=== PATIENT | female | born 1990 | race Two or more races ===

== ENCOUNTER 2021-08-08 15:50 | Emergency (ER) | payer OTHER ==
[~2021-08-08] VITALS: Ht 152.4 cm; Wt 72.6 kg
[2021-08-08] MEDS ORDERED: ALBU6.7H9 INH (16:40)
[2021-08-08] MEDS ORDERED: BENZ-13 PO (16:40)
--- NOTE | 2021-08-08 17:23 | NUR ---
Patient discharged to home in stable condition. Written and verbal after care instructions given. Patient verbalizes understanding of instructions. Stressed follow up or return to ER for worsening s/s.
--- NOTE | 2021-08-08 18:06 | NUR ---
The patient is informed that she is Covid positive. Precautions given.
== END 2021-08-08 17:24 | disposition home or self-care (01) ==
LOC: ER 16:04
DX: U07.1 COVID-19 (principal); J40 Bronchitis, not specified as acute or chronic
CPT/HCPCS: 87400; A4663

== ENCOUNTER 2022-05-28 18:00 | Inpatient (IN) | payer OTHER ==
[~2022-05-28] VITALS: Ht 157.5 cm; Wt 72.1 kg
[~2022-05-28 18:00] MED LIST: ALBU6.7H9 INH; BENZ-13 PO
--- NOTE | 2022-05-28 18:23 | NUR ---
Urine collected and sent to LAB.
[2022-05-28] MEDS ORDERED: ONDANSETRON 4 MG/2 ML VIAL ONE (18:43)
[2022-05-28] MEDS ORDERED: HYDROMORPHONE 1 MG/1 ML DISP.SYRIN ONE ×2 (18:44→20:44)
[2022-05-28] MEDS ORDERED: ONDANSETRON 4 MG/2 ML VIAL IV ONE ×2 (18:45→21:45)
[2022-05-28] MEDS ORDERED: HYDROMORPHONE 1 MG/1 ML DISP.SYRIN IV ONE ×2 (18:45→20:45)
[2022-05-28] MEDS ORDERED: KETOROLAC TROMETHAMINE 30 MG INJ IVP ONE (18:45)
[2022-05-28 18:49] LABS: *BILIRUBIN,URIN NEGATIVE (NEGATIVE); *CLARITY,URINE CLEAR (CLEAR); *COLOR,URINE YELLOW (YELLOW); *KETONES,URINE NEGATIVE (NEGATIVE); *UROBILINOGEN,URINE 0.2 E.U./dl (NORMAL); LEUKOCYTE ESTERASE ,URINE 3+ (NEGATIVE); NITRITE, URINE NEGATIVE (NEGATIVE); UGLUCOSE NEGATIVE (NEGATIVE)
[2022-05-28 18:52] LABS: *BLOOD, URINE TRACE (NEGATIVE); *URINE HCG, QUAL NEGATIVE (NEGATIVE)
[2022-05-28 18:53] LABS: BACTERIA,URINE FEW /HPF (NONE SEEN); RBC,URINE 0-3 /HPF (0-3); SQUAMOUS EPITHELIAL CELL,UR MODERATE /HPF (NONE SEEN)
[2022-05-28] MEDS ORDERED: KETOROLAC TROMETHAMINE 30 MG INJ ONE (19:03)
[2022-05-28 19:17] LABS: HEMATOCRIT 40.8 % (31.2-41.9); MEAN CORPUSCULAR HEMOGLOBIN 31.8 uug (24.7-32.8); PLATELET COUNT (AUTO) 258 K/uL (179-408)
[2022-05-28 19:18] LABS: CARBON DIOXIDE 26 mmol/L (21-32); CHLORIDE 105 mmol/L (98-107); CREATININE 0.9 mg/dL (0.6-1.3); GLUCOSE 88 mg/dL (74-106); POTASSIUM 3.8 mmol/L (3.5-5.1); UREA NITROGEN, BLOOD 17 mg/dL (7-18)
[2022-05-28 19:24] LABS: ALANINE AMINOTRANSFERASE 31 U/L (14-59); ALKALINE PHOSPHATASE 70 U/L (50-136); ASPARTATE AMINOTRANSFERASE 14 U/L (15-37); BILIRUBIN,DIRECT < 0.1 mg/dL (0.0-0.2); BILIRUBIN,TOTAL 0.4 mg/dL (0.2-1.0); LIPASE 48 U/L (73-393); TOTAL PROTEIN, SERUM 8.2 g/dL (6.4-8.2)
--- NOTE | 2022-05-28 19:30 | NUR ---
Received report from Bryce PEREZ.
--- NOTE | 2022-05-28 19:34 | NUR ---
US at bedside.
--- NOTE | 2022-05-28 20:42 | NUR ---
Called [facility] for panel call. HA Crawford forensic economist.
[2022-05-28] MEDS ORDERED: PIPERACILLIN/TAZOBACTAM/D5W 50 ML IV ONE (20:44)
[2022-05-28] MEDS ORDERED: PIPERACILLIN SODIUM/TAZOBACTAM 3.375 G in IV DEXTROSE 5% 50 ML IV ONE (20:45)
[2022-05-28] MEDS ORDERED: HYDROMORPHONE 1 MG/1 ML DISP.SYRIN IV PRN (21:00)
[2022-05-28] MEDS ORDERED: MAGNESIUM HYDROXIDE 30 ML LIQUID UDC PO PRN (21:00)
[2022-05-28] MEDS ORDERED: IV D5/ 0.9% NACL 1,000 ML IV PRN (21:00)
[2022-05-28] MEDS ORDERED: REMEDY ESSENTIAL ZINC PASTE 113 GM TP PRN (21:00)
[2022-05-28] MEDS ORDERED: MORPHINE SULFATE 2 MG/1 ML DISP.SYRIN IV PRN (21:00)
[2022-05-28] MEDS ORDERED: ACETAMINOPHEN 325 MG TABLET PO PRN (21:00)
--- NOTE | 2022-05-28 22:50 | NUR ---
Call for MED SURG bed (rm 317). Report given to Shireen PEREZ
[2022-05-29] VITALS: BP 110/71
--- NOTE | 2022-05-29 00:10 | NUR ---
Pt. admitted to Med Surg rm 317, under care of HA [place]. [place] [place] completed Shireen PEREZ aware of patient's arrival to unit.
--- NOTE | 2022-05-29 01:00 | NUR ---
RECEIVED REPORT FROM [facility] IN THE ER PATIENT WOKE WITH ABD PAIN. PT STATES'i HAD THIS PAIN OFF ON ABOUT THREE BUT IT WOULD GO AWAY BUT NOW IT STAYS'.PT HAS RIGHT HAND IV 20G PT IS NPO PT HAD A HIDA SCAN OF THE ABD DONE. PT WAS GIVEN MEDICATION ORDERED NO SIGNS OF RESPIRATORY DISTRESS NOTED. PT IS NPO INFORMED CAN'T HAVE ICE CHIPS. WILL CONTINUE TO MONITOR.
[2022-05-29] MEDS: PANTOPRAZOLE SODIUM 40 MG VIAL IV SCH ×2 (02:27→08:22)
[2022-05-29] MEDS: ONDANSETRON 4 MG/2 ML VIAL IV PRN ×3 (02:28→14:52)
[2022-05-29 04:00] VITALS: BP 109/75
[2022-05-29] MEDS ORDERED: PIPERACILLIN SODIUM/TAZOBACTAM 3.375 G in IV DEXTROSE 5% 50 ML IV ONE (05:00)
[2022-05-29] MEDS ORDERED: HYDROMORPHONE 1 MG/1 ML DISP.SYRIN IV PRN ×2 (05:00→06:15)
[2022-05-29] MEDS ORDERED: PIPERACILLIN/TAZOBACTAM/D5W 50 ML IV ONE (05:34)
[2022-05-29 07:09] LABS: HEMATOCRIT 36.1 % (31.2-41.9); MEAN CORPUSCULAR HEMOGLOBIN 32.2 uug (24.7-32.8); MEAN CORPUSCULAR VOLUME 91.6 fL (75.5-95.3); PLATELET COUNT (AUTO) 244 K/uL (179-408)
[2022-05-29 07:34] LABS: CREATININE 1.1 mg/dL (0.6-1.3); POTASSIUM 3.8 mmol/L (3.5-5.1)
[2022-05-29 08:40] LABS: MAGNESIUM 2.1 mg/dL (1.8-2.4); PHOSPHOROUS 4.7 mg/dL (2.5-4.9)
[2022-05-29] MEDS: MORPHINE SULFATE 2 MG/1 ML DISP.SYRIN IV PRN ×2 (10:39→17:55)
[2022-05-29 11:08] VITALS: BP 103/61
[2022-05-29] MEDS: PIPERACILLIN SODIUM/TAZOBACTAM 3.375 G in IV DEXTROSE 5% 100 ML IV SCH ×2 (13:16→21:03)
[2022-05-29] MEDS ORDERED: PIPERACILLIN SODIUM/TAZOBACTAM 3.375 G in IV DEXTROSE 5% 50 ML IV SCH (14:00)
[2022-05-29 15:09] VITALS: BP 93/55
[2022-05-29 20:00] VITALS: BP 103/58
[2022-05-30 04:00] VITALS: BP 111/22
[2022-05-30] MEDS: PIPERACILLIN SODIUM/TAZOBACTAM 3.375 G in IV DEXTROSE 5% 100 ML IV SCH ×2 (05:06→14:00)
[2022-05-30] MEDS: MORPHINE SULFATE 2 MG/1 ML DISP.SYRIN IV PRN (05:48)
[2022-05-30 07:31] LABS: HEMATOCRIT 34.9 % (31.2-41.9); MEAN CORPUSCULAR HEMOGLOBIN 32.1 uug (24.7-32.8); MEAN CORPUSCULAR VOLUME 92.4 fL (75.5-95.3); PLATELET COUNT (AUTO) 230 K/uL (179-408)
[2022-05-30 07:45] LABS: POTASSIUM 3.6 mmol/L (3.5-5.1)
[2022-05-30] MEDS: PANTOPRAZOLE SODIUM 40 MG VIAL IV SCH (09:03)
[2022-05-30] MEDS ORDERED: METR500T PO (10:46)
[2022-05-30] MEDS ORDERED: LEVO750T46 PO (10:46)
[2022-05-30] MEDS ORDERED: MESA1.2T PO (10:46)
[2022-05-30] MEDS ORDERED: MESALAMINE 400 MG CAPSULE.DR PO SCH (11:00)
[2022-05-30 11:15] VITALS: BP 92/53
--- NOTE | 2022-05-30 13:00 | NUR ---
ABLE TO TOLERATE LUNCH WELL. PREPARED FOR DISCHARGE.
[2022-05-30 15:14] VITALS: BP 94/64
--- NOTE | 2022-05-30 15:30 | NUR ---
DISCHARGED VIA W/C TO [facility] IN AUTO. NO C/O DISCOMFORT.
== END 2022-05-30 15:30 | disposition home or self-care (01) | DRG 244 ==
LOC: ER 18:00 → MEDSURG3 21:25
PROVIDERS: ADMIT Nurse Practitioner Acute Care; ATTEND Nurse Practitioner Acute Care
DX: K57.20 Diverticulitis of large intestine with perforation and abscess without bleeding (principal); K76.0 Fatty (change of) liver, not elsewhere classified; E66.9 Obesity, unspecified; N39.0 Urinary tract infection, site not specified; Z68.29 Body mass index [BMI] 29.0-29.9, adult; Z20.822 Contact with and (suspected) exposure to COVID-19
CPT/HCPCS: 36415; 78445; 83690; 83735; 84100; 84703; 85025; 87086; A4663; A9537; C9113; G0378; J1170; J1885; J2270; J2405; J2543; J7042

== ENCOUNTER 2022-07-09 18:10 | Emergency (ER) | payer OTHER ==
[~2022-07-09] VITALS: Ht 157.5 cm; Wt 72.6 kg
[~2022-07-09 18:10] MED LIST changes: +LEVO750T46 PO; +MESA1.2T PO; +METR500T PO
[2022-07-09] MEDS ORDERED: ACETAMINOPHEN ES 500 MG TABLET ONE (22:59)
--- NOTE | 2022-07-10 00:42 | NUR ---
PLACED PATIENT IN ROOM 2B.
--- NOTE | 2022-07-10 00:47 | NUR ---
Dr Morales at bedside MSE in progress
[2022-07-10] MEDS ORDERED: HYDROMORPHONE 1 MG/1 ML DISP.SYRIN IV ONE ×3 (01:00→05:30)
[2022-07-10] MEDS ORDERED: ONDANSETRON 4 MG/2 ML VIAL IV ONE (01:00)
[2022-07-10] MEDS ORDERED: IV NORMAL SALINE 1000 ML BAG IV ONE (01:00)
[2022-07-10] MEDS ORDERED: HYDROMORPHONE 1 MG/1 ML DISP.SYRIN ONE ×3 (01:01→05:28)
[2022-07-10] MEDS ORDERED: ONDANSETRON 4 MG/2 ML VIAL ONE (01:01)
[2022-07-10 01:31] LABS: *BILIRUBIN,URIN NEGATIVE (NEGATIVE); *CLARITY,URINE CLEAR (CLEAR); *KETONES,URINE NEGATIVE (NEGATIVE); *UROBILINOGEN,URINE 0.2 E.U./dl (NORMAL); LEUKOCYTE ESTERASE ,URINE TRACE (NEGATIVE); NITRITE, URINE NEGATIVE (NEGATIVE); PH,URINE 5.5 (5.0-8.0); UGLUCOSE NEGATIVE (NEGATIVE)
[2022-07-10 01:32] LABS: BILIRUBIN,DIRECT 0.1 mg/dL (0.0-0.2); BILIRUBIN,TOTAL 0.4 mg/dL (0.2-1.0); CREATININE 0.8 mg/dL (0.6-1.3); HEMATOCRIT 39.7 % (31.2-41.9); MEAN CORPUSCULAR HEMOGLOBIN 32.1 uug (24.7-32.8); MEAN CORPUSCULAR VOLUME 91.9 fL (75.5-95.3); PLATELET COUNT (AUTO) 331 K/uL (179-408); POTASSIUM 3.3 mmol/L (3.5-5.1); TOTAL PROTEIN, SERUM 7.8 g/dL (6.4-8.2)
[2022-07-10 01:37] LABS: *BLOOD, URINE TRACE (NEGATIVE); *COLOR,URINE HAZY (YELLOW)
[2022-07-10 01:38] LABS: *URINE HCG, QUAL NEGATIVE (NEGATIVE); BACTERIA,URINE FEW /HPF (NONE SEEN); SQUAMOUS EPITHELIAL CELL,UR FEW /HPF (NONE SEEN)
[2022-07-10] MEDS ORDERED: SWABABLE VALVE TRANSFER SET EA MC ONE (01:51)
[2022-07-10] MEDS ORDERED: IV NORMAL SALINE 250 ML IV ONE (01:51)
[2022-07-10] MEDS ORDERED: IOHEXOL 350 100 ML INFUS..BTL ONE (01:51)
[2022-07-10] MEDS ORDERED: IV D5W-0.45% NS +20 KCL 1,000 ML IV ONE ×2 (02:00→02:13)
[2022-07-10] MEDS ORDERED: PIPERACILLIN SODIUM/TAZOBACTAM 3.375 G in IV DEXTROSE 5% 50 ML IV ONE (04:15)
[2022-07-10] MEDS ORDERED: PIPERACILLIN/TAZOBACTAM/D5W 50 ML IV ONE (04:18)
--- NOTE | 2022-07-10 06:00 | NUR ---
[facility] transfer center called for transfer information. Pt. will be transferred to [facility] [id number] called for report .
--- NOTE | 2022-07-10 06:20 | NUR ---
Called [facility] to give report, was told no nurse assigned for the pt. at the moment. Will call us once ready for report.
--- NOTE | 2022-07-10 06:45 | NUR ---
Gave SBAR report to Lucy amaro from [facility] [place] .
--- NOTE | 2022-07-10 06:48 | NUR ---
called [facility] ambulance for transport spoke with randi ALVAREZ 30-45 mins.
--- NOTE | 2022-07-10 08:14 | NUR ---
Previous nurse Breann Haddad gave report to ambulance EMT staff. Patient left ER in stable condition.
== END 2022-07-10 08:14 | disposition short-term general hospital (02) ==
LOC: ER 18:10
DX: K57.32 Diverticulitis of large intestine without perforation or abscess without bleeding (principal); K52.9 Noninfective gastroenteritis and colitis, unspecified
CPT/HCPCS: 99285; 74177; 96374; 96375; 96361; 87426; 80076; 80048; 81001; 84703; 83690; 85025; 36415; 96376; J2405; Q9967; J2543; J1170 ×3; J7040; A9150

== ENCOUNTER 2022-09-03 18:35 | Emergency (ER) | payer OTHER ==
[~2022-09-03] VITALS: Ht 157.5 cm; Wt 68.0 kg
[2022-09-03] MEDS ORDERED: IV NORMAL SALINE 1000 ML BAG IV ONE (20:00)
[2022-09-03 20:14] LABS: HEMATOCRIT 40.7 % (31.2-41.9); MEAN CORPUSCULAR HEMOGLOBIN 30.9 uug (24.7-32.8); MEAN CORPUSCULAR VOLUME 92.4 fL (75.5-95.3); PLATELET COUNT (AUTO) 271 K/uL (179-408)
[2022-09-03 20:23] LABS: CREATININE 0.8 mg/dL (0.6-1.3); POTASSIUM 3.9 mmol/L (3.5-5.1)
[2022-09-03 20:34] LABS: BILIRUBIN,DIRECT 0.1 mg/dL (0.0-0.2); BILIRUBIN,TOTAL 0.4 mg/dL (0.2-1.0); TOTAL PROTEIN, SERUM 8.2 g/dL (6.4-8.2)
[2022-09-03 20:46] LABS: *BILIRUBIN,URIN NEGATIVE (NEGATIVE); *COLOR,URINE YELLOW (YELLOW); *KETONES,URINE NEGATIVE (NEGATIVE); *UROBILINOGEN,URINE 0.2 E.U./dl (NORMAL); LEUKOCYTE ESTERASE ,URINE 1+ (NEGATIVE); NITRITE, URINE NEGATIVE (NEGATIVE); PH,URINE 6.5 (5.0-8.0); UGLUCOSE NEGATIVE (NEGATIVE)
[2022-09-03 20:50] LABS: *BLOOD, URINE TRACE (NEGATIVE); *CLARITY,URINE HAZY (CLEAR)
[2022-09-03 20:51] LABS: *URINE HCG, QUAL NEGATIVE (NEGATIVE); BACTERIA,URINE FEW /HPF (NONE SEEN); SQUAMOUS EPITHELIAL CELL,UR FEW /HPF (NONE SEEN)
[2022-09-03] MEDS ORDERED: ONDANSETRON 4 MG/2 ML VIAL IV ONE (21:15)
[2022-09-03] MEDS ORDERED: HYDROMORPHONE 1 MG/1 ML DISP.SYRIN IV ONE ×2 (21:15→22:45)
[2022-09-03] MEDS ORDERED: IOHEXOL 300MG/ML 100 ML INFUS..BTL ONE (21:16)
[2022-09-03] MEDS ORDERED: IV NORMAL SALINE 250 ML IV ONE (21:17)
[2022-09-03] MEDS ORDERED: SWABABLE VALVE TRANSFER SET EA MC ONE (21:17)
--- NOTE | 2022-09-03 22:00 | NUR ---
Patient in room laying on gurny with no distress noted
[2022-09-03] MEDS ORDERED: AMOX-430 PO (22:24)
[2022-09-03] MEDS ORDERED: HYDR-4209 PO (22:26)
[2022-09-03] MEDS ORDERED: PIPERACILLIN SODIUM/TAZOBACTAM 3.375 G in IV DEXTROSE 5% 50 ML IV ONE (22:30)
--- NOTE | 2022-09-03 22:30 | NUR ---
Dr Morales into re eval patient.
[2022-09-03] MEDS ORDERED: HYDROMORPHONE 1 MG/1 ML DISP.SYRIN ONE (22:41)
[2022-09-03] MEDS ORDERED: ONDANSETRON 4 MG/2 ML VIAL ONE (22:41)
[2022-09-03] MEDS ORDERED: PIPERACILLIN/TAZOBACTAM/D5W 50 ML IV ONE (22:41)
--- NOTE | 2022-09-03 22:53 | NUR ---
pt in room, gave all due meds as ordered at this time.
[2022-09-04 00:39] VITALS: BP 122/80
== END 2022-09-04 00:40 | disposition home or self-care (01) ==
LOC: ER 19:02
DX: U07.1 COVID-19 (principal); J02.9 Acute pharyngitis, unspecified; K57.92 Diverticulitis of intestine, part unspecified, without perforation or abscess without bleeding; R10.9 Unspecified abdominal pain
CPT/HCPCS: 36415; 71045; 83690; 84703; 85025; A4663; J1170; J2405; J2543; J7040; Q9967

== ENCOUNTER 2023-03-31 13:02 | Emergency (ER) | payer OTHER ==
[~2023-03-31] VITALS: Ht 157.5 cm; Wt 65.8 kg
[~2023-03-31 13:02] MED LIST changes: +AMOX-430 PO; +HYDR-4209 PO
[2023-03-31] MEDS ORDERED: IV NORMAL SALINE 1000 ML BAG IV ONE ×2 (13:30→13:45)
[2023-03-31 13:36] LABS: BASOPHILS % (AUTO) 0.6 % (0.0-2.0); EOSINOPHILS % (AUTO) 0.5 % (0.0-7.0); HEMATOCRIT 41.4 % (31.2-41.9); HEMOGLOBIN 13.9 g/dL (10.9-14.3); LYMPHOCYTES # (AUTO) 1.7 K/uL (0.8-4.8); LYMPHOCYTES % (AUTO) 22.6 % (20.5-51.5); MEAN CORPUSCULAR HEMOGLOBIN 31.7 uug (24.7-32.8); MEAN CORPUSCULAR HGB CONC 34 g/dL (32.3-35.6); MEAN CORPUSCULAR VOLUME 94.4 fL (75.5-95.3); MONOCYTES # (AUTO) 0.7 K/uL (0.1-1.30); MONOCYTES % (AUTO) 8.8 % (0.0-11.0); NEUTROPHILS # (AUTO) 5.2 K/uL (1.8-8.9); NEUTROPHILS % (AUTO) 67.5 % (38.5-71.5); PLATELET COUNT (AUTO) 314 K/uL (179-408); RED BLOOD CELL COUNT(AUTO) 4.38 MIL/uL (3.63-4.92); RED CELL DISTRIBUTION WIDTH 13.5 % (12.3-17.7); WHITE BLOOD COUNT (AUTO) 7.7 K/uL (3.8-11.8)
[2023-03-31 13:41] LABS: *BILIRUBIN,URIN NEGATIVE (NEGATIVE); *BLOOD, URINE 3+ (NEGATIVE); *CLARITY,URINE CLEAR (CLEAR); *COLOR,URINE YELLOW (YELLOW); *KETONES,URINE NEGATIVE (NEGATIVE); *PROTEIN,URINE 1+ (NEGATIVE); *UROBILINOGEN,URINE 0.2 E.U./dl (NORMAL); LEUKOCYTE ESTERASE ,URINE 2+ (NEGATIVE); NITRITE, URINE POSITIVE (NEGATIVE); UGLUCOSE NEGATIVE (NEGATIVE)
[2023-03-31 13:44] LABS: DIFFERENTIAL COMMENT 1
[2023-03-31] MEDS ORDERED: CEFTRIAXONE 1 G in IV DEXTROSE 5% 50 ML IV ONE (13:45)
[2023-03-31] MEDS ORDERED: ACETAMINOPHEN 325 MG TABLET PO ONE (13:45)
[2023-03-31] MEDS ORDERED: CEFTRIAXONE /D5W 50ML IVPB **ER PYXIS IV ONE (14:04)
[2023-03-31] MEDS ORDERED: ACETAMINOPHEN 325 MG TABLET ONE (14:05)
[2023-03-31] MEDS ORDERED: ONDANSETRON 4 MG/2 ML VIAL ONE (14:10)
[2023-03-31] MEDS ORDERED: ONDANSETRON 4 MG/2 ML VIAL IV ONE (14:15)
[2023-03-31 14:35] LABS: PREGNANCY TEST SERUM QUAN < 1 miul/L (0-6)
[2023-03-31 15:00] LABS: CALCIUM 8.6 mg/dL (8.5-10.1); CARBON DIOXIDE 27 mmol/L (21-32); CHLORIDE 103 mmol/L (98-107); GLUCOSE 116 mg/dL (74-106); POTASSIUM 3.8 mmol/L (3.5-5.1); SODIUM SERUM 139 mmol/L (136-145)
[2023-03-31 15:01] LABS: ALANINE AMINOTRANSFERASE 31 U/L (14-59); ALKALINE PHOSPHATASE 87 U/L (50-136); ASPARTATE AMINOTRANSFERASE 21 U/L (15-37); BILIRUBIN,DIRECT 0.1 mg/dL (0.0-0.2); UREA NITROGEN, BLOOD 16 mg/dL (7-18)
[2023-03-31 15:02] LABS: ALBUMIN 3.9 g/dL (3.4-5.0); TOTAL PROTEIN, SERUM 7.9 g/dL (6.4-8.2)
[2023-03-31 15:23] LABS: BILIRUBIN,TOTAL 0.4 mg/dL (0.2-1.0)
[2023-03-31] MEDS ORDERED: IBUP-1955 PO (15:35)
[2023-03-31] MEDS ORDERED: CEPH500C2 PO (15:35)
[2023-03-31] MEDS ORDERED: ONDA4TAB5 PO (15:35)
[2023-03-31 15:56] VITALS: BP 114/60; O2SAT 99
[2023-03-31 16:39] LABS: BACTERIA,URINE MODERATE /HPF (NONE SEEN)
== END 2023-03-31 15:57 | disposition home or self-care (01) ==
LOC: ER 13:02
DX: N12 Tubulo-interstitial nephritis, not specified as acute or chronic (principal); N39.0 Urinary tract infection, site not specified; N93.9 Abnormal uterine and vaginal bleeding, unspecified; R10.2 Pelvic and perineal pain; Z79.2 Long term (current) use of antibiotics; Z79.899 Other long term (current) drug therapy
CPT/HCPCS: 99285; 74176; 96365; 76856; 96375; 80076; 80048; 81001; 85025; 86850; 86900; 86901; 87040 ×2; 84702; 36415; 93005; 83605; J0696; J2405; J7040 ×2; A4663

== ENCOUNTER 2023-07-09 15:25 | Emergency (ER) | payer OTHER ==
[~2023-07-09] VITALS: Ht 157.5 cm; Wt 65.8 kg
[~2023-07-09 15:25] MED LIST changes: +CEPH500C2 PO; +IBUP-1955 PO; +ONDA4TAB5 PO
[2023-07-09 15:59] LABS: *BILIRUBIN,URIN NEGATIVE (NEGATIVE); *CLARITY,URINE CLEAR (CLEAR); *COLOR,URINE YELLOW (YELLOW); *KETONES,URINE NEGATIVE (NEGATIVE); *PROTEIN,URINE NEGATIVE (NEGATIVE); *UROBILINOGEN,URINE 0.2 E.U./dl (NORMAL); LEUKOCYTE ESTERASE ,URINE NEGATIVE (NEGATIVE); NITRITE, URINE NEGATIVE (NEGATIVE); UGLUCOSE NEGATIVE (NEGATIVE)
[2023-07-09 16:04] LABS: *BLOOD, URINE TRACE (NEGATIVE)
[2023-07-09 16:05] LABS: *URINE HCG, QUAL NEGATIVE (NEGATIVE)
[2023-07-09] MEDS ORDERED: IV NORMAL SALINE 1000 ML BAG IV ONE (17:15)
[2023-07-09] MEDS ORDERED: METOCLOPRAMIDE HCL 10 MG/2 ML VIAL IV ONE (17:15)
[2023-07-09] MEDS ORDERED: KETOROLAC TROMETHAMINE 15 MG INJ IVP ONE (17:15)
[2023-07-09] MEDS ORDERED: METOCLOPRAMIDE HCL 10 MG/2 ML VIAL ONE (17:32)
[2023-07-09] MEDS ORDERED: KETOROLAC TROMETHAMINE 15 MG INJ ONE (17:32)
[2023-07-09 17:41] LABS: BASOPHILS # (AUTO) 0.1 K/UL (0.0-0.2); BASOPHILS % (AUTO) 0.5 % (0.0-2.0); EOSINOPHILS % (AUTO) 0.3 % (0.0-7.0); HEMATOCRIT 41.7 % (31.2-41.9); HEMOGLOBIN 14.1 g/dL (10.9-14.3); LYMPHOCYTES # (AUTO) 2.1 K/uL (0.8-4.8); LYMPHOCYTES % (AUTO) 16.3 % (20.5-51.5); MEAN CORPUSCULAR HEMOGLOBIN 32.4 uug (24.7-32.8); MEAN CORPUSCULAR HGB CONC 34 g/dL (32.3-35.6); MEAN CORPUSCULAR VOLUME 96.2 fL (75.5-95.3); MONOCYTES # (AUTO) 0.8 K/uL (0.1-1.30); MONOCYTES % (AUTO) 6.6 % (0.0-11.0); NEUTROPHILS # (AUTO) 9.8 K/uL (1.8-8.9); NEUTROPHILS % (AUTO) 76.3 % (38.5-71.5); PLATELET COUNT (AUTO) 259 K/uL (179-408); RED BLOOD CELL COUNT(AUTO) 4.34 MIL/uL (3.63-4.92); RED CELL DISTRIBUTION WIDTH 12.8 % (12.3-17.7); WHITE BLOOD COUNT (AUTO) 12.9 K/uL (3.8-11.8)
[2023-07-09 17:55] LABS: DIFFERENTIAL COMMENT 1
[2023-07-09 18:13] LABS: BACTERIA,URINE FEW /HPF (NONE SEEN); RBC,URINE 0-3 /HPF (0-3); WBC,URINE 0-3 /HPF (0-3)
[2023-07-09 18:14] LABS: SQUAMOUS EPITHELIAL CELL,UR FEW /HPF (NONE SEEN)
[2023-07-09 18:26] LABS: CALCIUM 8.4 mg/dL (8.5-10.1); CREATININE 0.6 mg/dL (0.6-1.3); POTASSIUM 3.7 mmol/L (3.5-5.1)
[2023-07-09 18:32] LABS: ALBUMIN 3.2 g/dL (3.4-5.0); BILIRUBIN,DIRECT 0.1 mg/dL (0.0-0.2); BILIRUBIN,TOTAL 0.2 mg/dL (0.2-1.0); TOTAL PROTEIN, SERUM 6.4 g/dL (6.4-8.2)
[2023-07-09] MEDS ORDERED: ONDANSETRON 4 MG/2 ML VIAL IV ONE (19:00)
[2023-07-09] MEDS ORDERED: PIPERACILLIN SODIUM/TAZOBACTAM 3.375 G in IV DEXTROSE 5% 50 ML IV ONE (19:00)
[2023-07-09] MEDS ORDERED: HYDROMORPHONE 1 MG/1 ML DISP.SYRIN IV ONE (19:00)
[2023-07-09] MEDS ORDERED: ONDA4TAB11 PO (19:05)
[2023-07-09] MEDS ORDERED: HYDR-3980 PO (19:05)
[2023-07-09] MEDS ORDERED: AMOX-430 PO (19:05)
[2023-07-09] MEDS ORDERED: ONDANSETRON 4 MG/2 ML VIAL ONE (19:12)
[2023-07-09] MEDS ORDERED: HYDROMORPHONE 1 MG/1 ML DISP.SYRIN ONE (19:12)
[2023-07-09] MEDS ORDERED: PIPERACILLIN/TAZOBACTAM/D5W 0 ML ONE (19:13)
[2023-07-09] MEDS ORDERED: PIPERACILLIN/TAZOBACTAM/D5W 50 ML IV ONE (19:21)
[2023-07-09 20:32] VITALS: BP 121/79; TEMP 98.4; O2SAT 99
== END 2023-07-09 20:32 | disposition home or self-care (01) ==
LOC: ER 15:29
DX: K57.32 Diverticulitis of large intestine without perforation or abscess without bleeding (principal); Z79.1 Long term (current) use of non-steroidal anti-inflammatories (NSAID); Z79.2 Long term (current) use of antibiotics; Z79.899 Other long term (current) drug therapy
CPT/HCPCS: 99285; 74176; 96365; 96375; 96361; 80076; 80048; 81001; 84703; 83690; 85025; 87040 ×2; 36415; 83605; 87086; J1885; J2765; J2405; J2543; J1170; J7040; A4606; A4663

== ENCOUNTER 2024-02-01 19:52 | Emergency (ER) | payer OTHER ==
[~2024-02-01] VITALS: Ht 157.5 cm; Wt 64.4 kg
[~2024-02-01 19:52] MED LIST changes: +HYDR-3980 PO; +ONDA4TAB11 PO
[2024-02-01 22:12] LABS: BASOPHILS % (AUTO) 0.5 % (0.0-2.0); EOSINOPHILS # (AUTO) 0.1 K/uL (0.0-0.7); HEMATOCRIT 41.6 % (31.2-41.9); HEMOGLOBIN 13.8 g/dL (10.9-14.3); LYMPHOCYTES # (AUTO) 2.1 K/uL (0.8-4.8); LYMPHOCYTES % (AUTO) 31.3 % (20.5-51.5); MEAN CORPUSCULAR HEMOGLOBIN 29.8 uug (24.7-32.8); MEAN CORPUSCULAR HGB CONC 33 g/dL (32.3-35.6); MONOCYTES # (AUTO) 0.6 K/uL (0.1-1.30); MONOCYTES % (AUTO) 8.3 % (0.0-11.0); NEUTROPHILS # (AUTO) 3.9 K/uL (1.8-8.9); NEUTROPHILS % (AUTO) 58.9 % (38.5-71.5); PLATELET COUNT (AUTO) 312 K/uL (179-408); RED BLOOD CELL COUNT(AUTO) 4.62 MIL/uL (3.63-4.92); RED CELL DISTRIBUTION WIDTH 12.9 % (12.3-17.7); WHITE BLOOD COUNT (AUTO) 6.7 K/uL (3.8-11.8)
[2024-02-01] MEDS ORDERED: ONDANSETRON 4 MG/2 ML VIAL ONE (22:12)
[2024-02-01] MEDS ORDERED: HYDROMORPHONE 1 MG/1 ML DISP.SYRIN ONE (22:12)
[2024-02-01 22:14] LABS: DIFFERENTIAL COMMENT 1
[2024-02-01] MEDS: HYDROMORPHONE 1 MG/1 ML DISP.SYRIN IV ONE (22:15)
[2024-02-01] MEDS: ONDANSETRON 4 MG/2 ML VIAL IV ONE (22:15)
[2024-02-01] MEDS: IV NORMAL SALINE 1000 ML BAG IV ONE (22:15)
[2024-02-01 22:22] LABS: CALCIUM 9.2 mg/dL (8.5-10.1); CARBON DIOXIDE 27 mmol/L (21-32); CHLORIDE 106 mmol/L (98-107); CREATININE 0.9 mg/dL (0.6-1.3); GLUCOSE 100 mg/dL (74-106); POTASSIUM 3.3 mmol/L (3.5-5.1); SODIUM SERUM 143 mmol/L (136-145); UREA NITROGEN, BLOOD 13 mg/dL (7-18)
[2024-02-01 22:25] LABS: ALANINE AMINOTRANSFERASE 18 U/L (14-59); ALBUMIN 3.9 g/dL (3.4-5.0); ALKALINE PHOSPHATASE 71 U/L (50-136); ASPARTATE AMINOTRANSFERASE 12 U/L (15-37); BILIRUBIN,DIRECT 0.1 mg/dL (0.0-0.2); BILIRUBIN,TOTAL 0.3 mg/dL (0.2-1.0); LIPASE 24 U/L (16-77); TOTAL PROTEIN, SERUM 8.2 g/dL (6.4-8.2)
[2024-02-01] MEDS ORDERED: SWABABLE VALVE TRANSFER SET EA MC ONE (22:32)
[2024-02-01] MEDS ORDERED: IV NORMAL SALINE 250 ML IV ONE (22:32)
[2024-02-01] MEDS ORDERED: IOHEXOL 300MG/ML 100 ML INFUS..BTL ONE (22:32)
[2024-02-01 22:37] LABS: PREGNANCY TEST SERUM QUAN < 1 miul/L (0-6)
[2024-02-02 00:15] VITALS: BP 126/74; TEMP 98; O2SAT 100
== END 2024-02-01 23:45 | disposition home or self-care (01) ==
LOC: ER 19:56
DX: R10.31 Right lower quadrant pain (principal); R10.2 Pelvic and perineal pain; Z98.890 Other specified postprocedural states; Z79.899 Other long term (current) drug therapy
CPT/HCPCS: 99285; 74177; 96374; 76856; 96361; 96375; 80076; 80048; 83690; 85025; 85730; 84702; J2405; Q9967; J1170; J7040; A4606; A4663

== ENCOUNTER 2024-02-23 10:06 | Emergency (ER) | payer OTHER ==
[~2024-02-23] VITALS: Ht 157.5 cm; Wt 63.5 kg
[2024-02-23] MEDS ORDERED: ACETAMINOPHEN 500 MG TABLET ONE (11:01)
[2024-02-23 11:03] LABS: BASOPHILS # (AUTO) 0.1 K/UL (0.0-0.2); BASOPHILS % (AUTO) 1.2 % (0.0-2.0); EOSINOPHILS % (AUTO) 0.7 % (0.0-7.0); HEMATOCRIT 42.2 % (31.2-41.9); HEMOGLOBIN 13.8 g/dL (10.9-14.3); LYMPHOCYTES % (AUTO) 34.3 % (20.5-51.5); MEAN CORPUSCULAR HEMOGLOBIN 29.3 uug (24.7-32.8); MEAN CORPUSCULAR HGB CONC 33 g/dL (32.3-35.6); MEAN CORPUSCULAR VOLUME 89.8 fL (75.5-95.3); MONOCYTES # (AUTO) 0.4 K/uL (0.1-1.30); NEUTROPHILS # (AUTO) 3.3 K/uL (1.8-8.9); NEUTROPHILS % (AUTO) 56.8 % (38.5-71.5); PLATELET COUNT (AUTO) 297 K/uL (179-408); RED CELL DISTRIBUTION WIDTH 13.6 % (12.3-17.7); WHITE BLOOD COUNT (AUTO) 5.7 K/uL (3.8-11.8)
[2024-02-23 11:10] LABS: CALCIUM 8.8 mg/dL (8.5-10.1); CARBON DIOXIDE 25 mmol/L (21-32); CHLORIDE 106 mmol/L (98-107); CREATININE 0.7 mg/dL (0.6-1.3); GLUCOSE 86 mg/dL (74-106); POTASSIUM 3.7 mmol/L (3.5-5.1); SODIUM SERUM 141 mmol/L (136-145); UREA NITROGEN, BLOOD 9 mg/dL (7-18)
[2024-02-23] MEDS: IV NORMAL SALINE 500 ML BAG IV ONE (11:11)
[2024-02-23] MEDS: ACETAMINOPHEN 500 MG TABLET PO ONE (11:11)
[2024-02-23 11:14] LABS: DIFFERENTIAL COMMENT 1
[2024-02-23 11:40] LABS: PREGNANCY TEST SERUM QUAN < 1 miul/L (0-6)
[2024-02-23 13:06] VITALS: BP 129/66; TEMP 98.2; O2SAT 97
== END 2024-02-23 13:23 | disposition home or self-care (01) ==
LOC: ER 10:06
DX: N93.9 Abnormal uterine and vaginal bleeding, unspecified (principal); R10.2 Pelvic and perineal pain; Z79.1 Long term (current) use of non-steroidal anti-inflammatories (NSAID); Z98.890 Other specified postprocedural states; Z79.891 Long term (current) use of opiate analgesic; Z79.899 Other long term (current) drug therapy
CPT/HCPCS: 36415; 76856; 85025; 85730; 86850; 86900; 86901; A4606; A4663; A9150; J7040

== ENCOUNTER 2024-05-16 14:05 | Emergency (ER) | payer OTHER ==
[~2024-05-16] VITALS: Ht 157.5 cm; Wt 64.0 kg
[2024-05-16] MEDS ORDERED: OXYCODONE/APAP 5-325 MG TABLET ONE (16:34)
[2024-05-16] MEDS: OXYCODONE/APAP 5-325 MG TABLET PO ONE (16:39)
[2024-05-16] MEDS ORDERED: HYDR-3972 PO (17:22)
[2024-05-16 17:29] VITALS: BP 105/64; O2SAT 99
== END 2024-05-16 17:30 | disposition home or self-care (01) ==
LOC: ER 14:05
DX: S52.92XA Unspecified fracture of left forearm, initial encounter for closed fracture (principal); Z79.899 Other long term (current) drug therapy; X58.XXXA Exposure to other specified factors, initial encounter; Y93.89 Activity, other specified; Y92.89 Other specified places as the place of occurrence of the external cause; Y99.8 Other external cause status
CPT/HCPCS: 73070; 73090; 73100; A4606; A4663

== ENCOUNTER 2024-08-15 15:50 | Emergency (ER) | payer OTHER ==
[~2024-08-15] VITALS: Ht 160 cm; Wt 65.8 kg
[~2024-08-15 15:50] MED LIST changes: +HYDR-3972 PO
[2024-08-15 17:48] VITALS: O2SAT 98
== END 2024-08-15 22:28 | disposition left against medical advice (07) ==
LOC: ER 15:50
DX: R50.9 Fever, unspecified (principal); Z53.21 Procedure and treatment not carried out due to patient leaving prior to being seen by health care provider
CPT/HCPCS: A4606; A4663

== ENCOUNTER 2024-10-04 21:45 | Emergency (ER) | payer OTHER ==
[~2024-10-04] VITALS: Ht 157.5 cm; Wt 65.3 kg
[2024-10-04 22:58] LABS: BASOPHILS % (AUTO) 0.6 % (0.0-2.0); EOSINOPHILS # (AUTO) 0.1 K/uL (0.0-0.7); HEMATOCRIT 35.2 % (31.2-41.9); HEMOGLOBIN 11.9 g/dL (10.9-14.3); LYMPHOCYTES # (AUTO) 1.8 K/uL (0.8-4.8); LYMPHOCYTES % (AUTO) 27.2 % (20.5-51.5); MEAN CORPUSCULAR HEMOGLOBIN 30.9 uug (24.7-32.8); MEAN CORPUSCULAR HGB CONC 34 g/dL (32.3-35.6); MEAN CORPUSCULAR VOLUME 90.9 fL (75.5-95.3); MONOCYTES # (AUTO) 0.8 K/uL (0.1-1.30); MONOCYTES % (AUTO) 12.3 % (0.0-11.0); NEUTROPHILS # (AUTO) 3.8 K/uL (1.8-8.9); NEUTROPHILS % (AUTO) 57.9 % (38.5-71.5); PLATELET COUNT (AUTO) 258 K/uL (179-408); RED BLOOD CELL COUNT(AUTO) 3.87 MIL/uL (3.63-4.92); RED CELL DISTRIBUTION WIDTH 12.4 % (12.3-17.7); WHITE BLOOD COUNT (AUTO) 6.6 K/uL (3.8-11.8)
[2024-10-04 23:01] LABS: DIFFERENTIAL COMMENT 1
[2024-10-04] MEDS: IV NORMAL SALINE 500 ML BAG IV ONE (23:01)
[2024-10-04] MEDS ORDERED: ONDANSETRON 4 MG/2 ML VIAL ONE (23:02)
[2024-10-04] MEDS ORDERED: MORPHINE SULFATE 4 MG/1 ML DISP.SYRIN ONE (23:03)
[2024-10-04 23:06] LABS: CALCIUM 8.9 mg/dL (8.5-10.1); CARBON DIOXIDE 28 mmol/L (21-32); CHLORIDE 106 mmol/L (98-107); CREATININE 0.5 mg/dL (0.6-1.3); GLUCOSE 94 mg/dL (74-106); POTASSIUM 3.5 mmol/L (3.5-5.1); SODIUM SERUM 141 mmol/L (136-145); UREA NITROGEN, BLOOD 12 mg/dL (7-18)
[2024-10-04 23:11] LABS: ALANINE AMINOTRANSFERASE 25 U/L (14-59); ALBUMIN 3.5 g/dL (3.4-5.0); ALKALINE PHOSPHATASE 70 U/L (50-136); ASPARTATE AMINOTRANSFERASE 17 U/L (15-37); BILIRUBIN,DIRECT < 0.1 mg/dL (0.0-0.2); BILIRUBIN,TOTAL 0.3 mg/dL (0.2-1.0); LIPASE 20 U/L (16-77); TOTAL PROTEIN, SERUM 7.1 g/dL (6.4-8.2)
[2024-10-04] MEDS: MORPHINE SULFATE 2 MG/1 ML DISP.SYRIN IV ONE (23:12)
[2024-10-04] MEDS: ONDANSETRON 4 MG/2 ML VIAL IV ONE (23:13)
[2024-10-04 23:19] LABS: *BILIRUBIN,URIN NEGATIVE (NEGATIVE); *BLOOD, URINE NEGATIVE (NEGATIVE); *CLARITY,URINE CLEAR (CLEAR); *COLOR,URINE LIGHT YELLOW (YELLOW); *KETONES,URINE NEGATIVE (NEGATIVE); *PROTEIN,URINE NEGATIVE (NEGATIVE); *UROBILINOGEN,URINE 0.2 E.U./dl (NORMAL); LEUKOCYTE ESTERASE ,URINE NEGATIVE (NEGATIVE); NITRITE, URINE NEGATIVE (NEGATIVE); UGLUCOSE NEGATIVE (NEGATIVE)
[2024-10-04 23:21] LABS: *URINE HCG, QUAL NEGATIVE (NEGATIVE)
[2024-10-05] MEDS ORDERED: KETOROLAC TROMETHAMINE 15 MG INJ ONE (02:47)
[2024-10-05] MEDS: KETOROLAC TROMETHAMINE 15 MG INJ IVP ONE (02:51)
[2024-10-05] MEDS ORDERED: PIPERACILLIN/TAZOBACTAM/D5W 50 ML IV ONE (03:58)
[2024-10-05] MEDS ORDERED: AMOX-430 PO (03:59)
[2024-10-05] MEDS ORDERED: ONDA4TAB11 PO (03:59)
[2024-10-05] MEDS ORDERED: HYDR-4209 PO ×2 (03:59→13:29)
[2024-10-05] MEDS: PIPERACILLIN SODIUM/TAZOBACTAM 3.375 G in IV DEXTROSE 5% 50 ML IV ONE (04:03)
[2024-10-05 04:36] VITALS: BP 96/65; TEMP 97.8; O2SAT 99
== END 2024-10-05 04:37 | disposition home or self-care (01) ==
LOC: ER 21:45
DX: K57.32 Diverticulitis of large intestine without perforation or abscess without bleeding (principal); R11.2 Nausea with vomiting, unspecified; R39.11 Hesitancy of micturition; Z86.16 Personal history of COVID-19
CPT/HCPCS: 99285; 74176; 96375 ×2; 96361; 80076; 80048; 81003; 84703; 83690; 85025; 36415; 96365; J2405; J2270; J1885; J2543; J7040; A4606; A4663

== ENCOUNTER 2024-10-28 07:21 | Inpatient (IN) | payer OTHER ==
[~2024-10-28] VITALS: Ht 157.5 cm; Wt 65.3 kg
[~2024-10-28 07:21] MED LIST changes: -ALBU6.7H9 INH; -BENZ-13 PO; -CEPH500C2 PO; -HYDR-3972 PO; -HYDR-3980 PO; -IBUP-1955 PO; -LEVO750T46 PO; -MESA1.2T PO; -METR500T PO; -ONDA4TAB5 PO
[2024-10-28 08:06] LABS: BASOPHILS # (AUTO) 0.1 K/UL (0.0-0.2); BASOPHILS % (AUTO) 0.4 % (0.0-2.0); HEMATOCRIT 40.2 % (31.2-41.9); HEMOGLOBIN 13.7 g/dL (10.9-14.3); LYMPHOCYTES # (AUTO) 0.7 K/uL (0.8-4.8); LYMPHOCYTES % (AUTO) 5.4 % (20.5-51.5); MEAN CORPUSCULAR HEMOGLOBIN 30.6 uug (24.7-32.8); MEAN CORPUSCULAR HGB CONC 34 g/dL (32.3-35.6); MEAN CORPUSCULAR VOLUME 89.5 fL (75.5-95.3); MONOCYTES # (AUTO) 0.7 K/uL (0.1-1.30); NEUTROPHILS # (AUTO) 12.3 K/uL (1.8-8.9); NEUTROPHILS % (AUTO) 89.2 % (38.5-71.5); PLATELET COUNT (AUTO) 276 K/uL (179-408); RED BLOOD CELL COUNT(AUTO) 4.49 MIL/uL (3.63-4.92); RED CELL DISTRIBUTION WIDTH 12.8 % (12.3-17.7); WHITE BLOOD COUNT (AUTO) 13.8 K/uL (3.8-11.8)
[2024-10-28 08:12] LABS: DIFFERENTIAL COMMENT 1
[2024-10-28 08:20] LABS: CALCIUM 8.6 mg/dL (8.5-10.1); CARBON DIOXIDE 27 mmol/L (21-32); CHLORIDE 104 mmol/L (98-107); CREATININE 0.8 mg/dL (0.6-1.3); GLUCOSE 97 mg/dL (74-106); POTASSIUM 3.5 mmol/L (3.5-5.1); SODIUM SERUM 141 mmol/L (136-145); UREA NITROGEN, BLOOD 15 mg/dL (7-18)
[2024-10-28] MEDS: IV NORMAL SALINE 1000 ML BAG IV ONE ×2 (08:20→13:50)
[2024-10-28 08:23] LABS: *BILIRUBIN,URIN 1+ (NEGATIVE); *CLARITY,URINE CLEAR (CLEAR); *COLOR,URINE YELLOW (YELLOW); *KETONES,URINE 2+ (NEGATIVE); *PROTEIN,URINE 2+ (NEGATIVE); *UROBILINOGEN,URINE 0.2 E.U./dl (NORMAL); LEUKOCYTE ESTERASE ,URINE 1+ (NEGATIVE); NITRITE, URINE NEGATIVE (NEGATIVE); UGLUCOSE NEGATIVE (NEGATIVE)
[2024-10-28] MEDS ORDERED: CEFTRIAXONE /D5W 50ML IVPB **ER PYXIS IV ONE (08:23)
[2024-10-28 08:24] LABS: *BLOOD, URINE TRACE (NEGATIVE)
[2024-10-28 08:25] LABS: BACTERIA,URINE MODERATE /HPF (NONE SEEN); SQUAMOUS EPITHELIAL CELL,UR FEW /HPF (NONE SEEN); WBC,URINE 20-50 /HPF (0-3)
[2024-10-28] MEDS: CEFTRIAXONE 1 G in IV DEXTROSE 5% 50 ML IV ONE (08:25)
[2024-10-28 08:26] LABS: *URINE HCG, QUAL NEGATIVE (NEGATIVE); URINE AMORPHOUS URATE FEW /HPF
[2024-10-28 08:27] LABS: ALANINE AMINOTRANSFERASE 16 U/L (14-59); ALBUMIN 3.6 g/dL (3.4-5.0); ALKALINE PHOSPHATASE 75 U/L (50-136); ASPARTATE AMINOTRANSFERASE 15 U/L (15-37); BILIRUBIN,DIRECT 0.1 mg/dL (0.0-0.2); BILIRUBIN,TOTAL 0.4 mg/dL (0.2-1.0); TOTAL PROTEIN, SERUM 8.2 g/dL (6.4-8.2)
[2024-10-28] MEDS: KETOROLAC TROMETHAMINE 15 MG INJ IVP ONE (08:53)
[2024-10-28] MEDS ORDERED: KETOROLAC TROMETHAMINE 15 MG INJ ONE (08:53)
[2024-10-28] MEDS ORDERED: MAGNESIUM HYDROXIDE 30 ML LIQUID UDC PO PRN (11:45)
[2024-10-28] MEDS ORDERED: REMEDY ESSENTIAL ZINC PASTE 113 GM TP PRN (11:45)
[2024-10-28] MEDS ORDERED: ONDANSETRON 4 MG/2 ML VIAL ONE (12:01)
[2024-10-28] MEDS ORDERED: methylPREDNISolone SOD SUCC 125 MG/2 ML VIAL ONE (12:02)
[2024-10-28] MEDS ORDERED: MORPHINE SULFATE 4 MG/1 ML DISP.SYRIN ONE (12:02)
[2024-10-28] MEDS: MORPHINE SULFATE 4 MG/1 ML DISP.SYRIN IV ONE (12:16)
[2024-10-28] MEDS: methylPREDNISolone SOD SUCC 125 MG/2 ML VIAL IV ONE (12:16)
[2024-10-28] MEDS: ONDANSETRON 4 MG/2 ML VIAL IV ONE (12:16)
[2024-10-28] MEDS ORDERED: METRONIDAZOLE 500 MG/NS 100ML 100 ML IV ONE (14:11)
[2024-10-28] MEDS: METRONIDAZOLE 500 MG/NS 100ML 500 MG in PREMIXED 1 EACH IV SCH ×2 (14:18→21:08)
[2024-10-28] MEDS: HYDROCODONE/APAP 10-325 MG TABLET PO PRN (16:31)
[2024-10-28 17:35] VITALS: BP 99/57; TEMP 99.2; O2SAT 96
[2024-10-28 20:56] VITALS: BP 93/54; TEMP 97.9; O2SAT 95
[2024-10-29 04:21] VITALS: BP 91/44; TEMP 97.8; O2SAT 100
[2024-10-29] MEDS: IV NS 1000 ML 1,000 ML IV PRN ×2 (05:23→20:39)
[2024-10-29 06:47] LABS: ALANINE AMINOTRANSFERASE 11 U/L (14-59); ALBUMIN 2.5 g/dL (3.4-5.0); ALKALINE PHOSPHATASE 54 U/L (50-136); ASPARTATE AMINOTRANSFERASE 10 U/L (15-37); BILIRUBIN,TOTAL 0.2 mg/dL (0.2-1.0); CALCIUM 7.4 mg/dL (8.5-10.1); CARBON DIOXIDE 24 mmol/L (21-32); CHLORIDE 107 mmol/L (98-107); CREATININE 0.5 mg/dL (0.6-1.3); GLUCOSE 128 mg/dL (74-106); MAGNESIUM 2.1 mg/dL (1.8-2.4); PHOSPHOROUS 2.6 mg/dL (2.5-4.9); POTASSIUM 3.8 mmol/L (3.5-5.1); SODIUM SERUM 140 mmol/L (136-145); TOTAL PROTEIN, SERUM 6.2 g/dL (6.4-8.2); UREA NITROGEN, BLOOD 9 mg/dL (7-18)
[2024-10-29 06:53] LABS: BASOPHILS % (AUTO) 0.1 % (0.0-2.0); HEMATOCRIT 32.7 % (31.2-41.9); LYMPHOCYTES # (AUTO) 0.7 K/uL (0.8-4.8); LYMPHOCYTES % (AUTO) 6.1 % (20.5-51.5); MEAN CORPUSCULAR HEMOGLOBIN 30.5 uug (24.7-32.8); MEAN CORPUSCULAR HGB CONC 34 g/dL (32.3-35.6); MEAN CORPUSCULAR VOLUME 90.6 fL (75.5-95.3); MONOCYTES # (AUTO) 0.6 K/uL (0.1-1.30); MONOCYTES % (AUTO) 5.4 % (0.0-11.0); NEUTROPHILS # (AUTO) 9.9 K/uL (1.8-8.9); NEUTROPHILS % (AUTO) 88.4 % (38.5-71.5); PLATELET COUNT (AUTO) 227 K/uL (179-408); RED BLOOD CELL COUNT(AUTO) 3.61 MIL/uL (3.63-4.92); RED CELL DISTRIBUTION WIDTH 12.5 % (12.3-17.7); WHITE BLOOD COUNT (AUTO) 11.2 K/uL (3.8-11.8)
[2024-10-29 07:10] LABS: DIFFERENTIAL COMMENT 1
[2024-10-29] MEDS: CEFTRIAXONE 1 G in IV DEXTROSE 5% 50 ML IV SCH (08:17)
[2024-10-29 11:51] VITALS: BP 84/47; TEMP 97.6; O2SAT 99
[2024-10-29 14:28] VITALS: BP 94/61; O2SAT 99
[2024-10-29] MEDS: PANTOPRAZOLE SODIUM 40 MG VIAL IV SCH (16:26)
[2024-10-29 20:00] VITALS: BP 121/80; TEMP 97.7; O2SAT 100
[2024-10-30 05:46] VITALS: BP 111/74; TEMP 98; O2SAT 98
[2024-10-30 06:37] LABS: BASOPHILS % (AUTO) 0.4 % (0.0-2.0); EOSINOPHILS % (AUTO) 0.3 % (0.0-7.0); HEMATOCRIT 31.6 % (31.2-41.9); HEMOGLOBIN 10.9 g/dL (10.9-14.3); LYMPHOCYTES # (AUTO) 1.9 K/uL (0.8-4.8); LYMPHOCYTES % (AUTO) 24.8 % (20.5-51.5); MEAN CORPUSCULAR HEMOGLOBIN 31.2 uug (24.7-32.8); MEAN CORPUSCULAR HGB CONC 34 g/dL (32.3-35.6); MEAN CORPUSCULAR VOLUME 90.6 fL (75.5-95.3); MONOCYTES # (AUTO) 0.8 K/uL (0.1-1.30); MONOCYTES % (AUTO) 10.6 % (0.0-11.0); NEUTROPHILS # (AUTO) 4.8 K/uL (1.8-8.9); NEUTROPHILS % (AUTO) 63.9 % (38.5-71.5); PLATELET COUNT (AUTO) 237 K/uL (179-408); RED BLOOD CELL COUNT(AUTO) 3.48 MIL/uL (3.63-4.92); RED CELL DISTRIBUTION WIDTH 12.7 % (12.3-17.7); WHITE BLOOD COUNT (AUTO) 7.5 K/uL (3.8-11.8)
[2024-10-30 06:45] LABS: CALCIUM 7.6 mg/dL (8.5-10.1); CREATININE 0.6 mg/dL (0.6-1.3); POTASSIUM 3.7 mmol/L (3.5-5.1)
[2024-10-30 06:52] LABS: DIFFERENTIAL COMMENT 1
[2024-10-30] MEDS: ONDANSETRON 4 MG/2 ML VIAL IV PRN (09:28)
[2024-10-30] MEDS: ACETAMINOPHEN 325 MG TABLET PO PRN (10:01)
[2024-10-30 12:00] VITALS: BP 94/58; TEMP 97.9; O2SAT 99
[2024-10-30 16:00] VITALS: BP 113/84; TEMP 98.1; O2SAT 100
[2024-10-30] MEDS: HYDROCORTISONE SOD SUCCINATE 100 MG/2 ML VIAL IV SCH (16:18)
[2024-10-30] MEDS ORDERED: IOHEXOL 350 100 ML INFUS..BTL ONE (17:08)
[2024-10-30] MEDS: HYDROMORPHONE 1 MG/1 ML DISP.SYRIN IV PRN (18:40)
[2024-10-30 20:00] VITALS: BP 110/59; TEMP 98.1; O2SAT 97
[2024-10-31 06:00] VITALS: BP 95/48; TEMP 97.9; O2SAT 98
[2024-10-31] MEDS ORDERED: methylPREDNISolone SOD SUCC 125 MG/2 ML VIAL IV SCH (10:00)
[2024-10-31 11:11] VITALS: BP 108/55; TEMP 98.6; O2SAT 96
[2024-10-31] MEDS: methylPREDNISolone SOD SUCC 125 MG/2 ML VIAL IV SCH (13:52)
[2024-10-31 15:19] VITALS: BP 117/64; TEMP 98.1; O2SAT 95
[2024-11-01 06:18] VITALS: BP 123/72; TEMP 98.3; O2SAT 97
[2024-11-01 11:03] VITALS: BP 103/53; TEMP 98.2; O2SAT 97
[2024-11-01 15:03] VITALS: BP 102/70; TEMP 97.2; O2SAT 98
[2024-11-01 19:00] VITALS: BP 99/60; TEMP 97.7; O2SAT 97
[2024-11-02 05:24] VITALS: BP 91/45; TEMP 98; O2SAT 94
[2024-11-02 06:25] LABS: BASOPHILS % (AUTO) 0.1 % (0.0-2.0); HEMATOCRIT 31.8 % (31.2-41.9); HEMOGLOBIN 10.9 g/dL (10.9-14.3); LYMPHOCYTES # (AUTO) 1.7 K/uL (0.8-4.8); LYMPHOCYTES % (AUTO) 12.5 % (20.5-51.5); MEAN CORPUSCULAR HEMOGLOBIN 30.7 uug (24.7-32.8); MEAN CORPUSCULAR HGB CONC 34 g/dL (32.3-35.6); MEAN CORPUSCULAR VOLUME 89.3 fL (75.5-95.3); MONOCYTES # (AUTO) 0.9 K/uL (0.1-1.30); NEUTROPHILS # (AUTO) 10.6 K/uL (1.8-8.9); NEUTROPHILS % (AUTO) 80.4 % (38.5-71.5); PLATELET COUNT (AUTO) 276 K/uL (179-408); RED BLOOD CELL COUNT(AUTO) 3.56 MIL/uL (3.63-4.92); RED CELL DISTRIBUTION WIDTH 12.3 % (12.3-17.7); WHITE BLOOD COUNT (AUTO) 13.2 K/uL (3.8-11.8)
[2024-11-02 06:30] LABS: CREATININE 0.6 mg/dL (0.6-1.3); POTASSIUM 3.5 mmol/L (3.5-5.1)
[2024-11-02 06:57] LABS: DIFFERENTIAL COMMENT 1
[2024-11-02 08:24] LABS: LYMPHOCYTES % (MANUAL) 8 % (20-40); METAMYELOCYTES % 3 % (0-1); MONOCYTES % (MANUAL) 4 % (2-10); NEUTROPHILS % (MANUAL) 85 % (42-75); PLATELET ESTIMATE ADEQUATE
[2024-11-02 11:02] VITALS: BP 105/61; TEMP 98.3; O2SAT 97
[2024-11-02 14:56] VITALS: BP 103/52; TEMP 98; O2SAT 97
[2024-11-03 05:43] VITALS: BP 91/54; TEMP 97.7; O2SAT 95
[2024-11-03 07:17] LABS: BASOPHILS % (AUTO) 0.2 % (0.0-2.0); HEMATOCRIT 31.5 % (31.2-41.9); HEMOGLOBIN 11.1 g/dL (10.9-14.3); LYMPHOCYTES # (AUTO) 1.1 K/uL (0.8-4.8); LYMPHOCYTES % (AUTO) 5.5 % (20.5-51.5); MEAN CORPUSCULAR HEMOGLOBIN 31.4 uug (24.7-32.8); MEAN CORPUSCULAR HGB CONC 35 g/dL (32.3-35.6); MEAN CORPUSCULAR VOLUME 89.1 fL (75.5-95.3); MONOCYTES # (AUTO) 0.8 K/uL (0.1-1.30); MONOCYTES % (AUTO) 4.1 % (0.0-11.0); NEUTROPHILS # (AUTO) 18.3 K/uL (1.8-8.9); NEUTROPHILS % (AUTO) 90.2 % (38.5-71.5); PLATELET COUNT (AUTO) 258 K/uL (179-408); RED BLOOD CELL COUNT(AUTO) 3.53 MIL/uL (3.63-4.92); RED CELL DISTRIBUTION WIDTH 12.7 % (12.3-17.7); WHITE BLOOD COUNT (AUTO) 20.3 K/uL (3.8-11.8)
[2024-11-03 07:35] LABS: DIFFERENTIAL COMMENT 1
[2024-11-03 07:46] LABS: CALCIUM 7.6 mg/dL (8.5-10.1); CREATININE 0.6 mg/dL (0.6-1.3); POTASSIUM 3.3 mmol/L (3.5-5.1)
[2024-11-03 08:19] VITALS: BP 128/80; O2SAT 100
[2024-11-03] MEDS: GOLYTELY 4000 ML BOTTLE PO ONE (11:07)
[2024-11-03 11:08] VITALS: BP 122/74; TEMP 98; O2SAT 100
[2024-11-03] MEDS: POTASSIUM CHLORIDE 20 MEQ POWDER PACKET PO ONE (12:39)
[2024-11-03 15:47] VITALS: BP 136/72; TEMP 98.1; O2SAT 98
[2024-11-03 19:10] VITALS: BP 125/85; TEMP 97.9; O2SAT 97
[2024-11-04] MEDS ORDERED: PROPOFOL 200 MG/20 ML BOTTLE ONE (05:00)
[2024-11-04 06:25] VITALS: BP 136/82; TEMP 97.6; O2SAT 96
[2024-11-04 06:48] LABS: BASOPHILS % (AUTO) 0.3 % (0.0-2.0); HEMATOCRIT 33.6 % (31.2-41.9); HEMOGLOBIN 11.4 g/dL (10.9-14.3); LYMPHOCYTES # (AUTO) 1.4 K/uL (0.8-4.8); LYMPHOCYTES % (AUTO) 10.2 % (20.5-51.5); MEAN CORPUSCULAR HEMOGLOBIN 30.1 uug (24.7-32.8); MEAN CORPUSCULAR HGB CONC 34 g/dL (32.3-35.6); MEAN CORPUSCULAR VOLUME 88.7 fL (75.5-95.3); MONOCYTES # (AUTO) 1.1 K/uL (0.1-1.30); MONOCYTES % (AUTO) 7.7 % (0.0-11.0); NEUTROPHILS # (AUTO) 11.5 K/uL (1.8-8.9); NEUTROPHILS % (AUTO) 81.8 % (38.5-71.5); PLATELET COUNT (AUTO) 290 K/uL (179-408); RED BLOOD CELL COUNT(AUTO) 3.79 MIL/uL (3.63-4.92); RED CELL DISTRIBUTION WIDTH 12.6 % (12.3-17.7); WHITE BLOOD COUNT (AUTO) 14.1 K/uL (3.8-11.8)
[2024-11-04 07:04] LABS: CALCIUM 7.7 mg/dL (8.5-10.1); CREATININE 0.6 mg/dL (0.6-1.3); POTASSIUM 3.4 mmol/L (3.5-5.1)
[2024-11-04 07:11] LABS: DIFFERENTIAL COMMENT 1
[2024-11-04] MEDS ORDERED: POTASSIUM CHLORIDE 20 MEQ POWDER PACKET PO ONE (10:00)
[2024-11-04] MEDS: POTASSIUM CHLORIDE 20 MEQ TAB.PRT.SR PO ONE (10:27)
[2024-11-04 10:54] VITALS: BP 122/68; TEMP 97.8; O2SAT 97
[2024-11-04] MEDS ORDERED: CIPR500S2 PO (10:57)
[2024-11-04] MEDS ORDERED: HYDR-4209 PO (10:57)
[2024-11-04] MEDS ORDERED: METR500T PO (10:57)
== END 2024-11-04 14:10 | disposition home or self-care (01) | DRG 463 ==
LOC: ER 07:21 → MEDSURG3 14:51
PROVIDERS: ADMIT Nurse Practitioner Acute Care; ATTEND Nurse Practitioner Acute Care
PROC: 05HC33Z Insertion of Infusion Device into Left Basilic Vein, Percutaneous Approach (ICD-10-PCS; principal; 2024-10-31)
PROC: 0DJD8ZZ Inspection of Lower Intestinal Tract, Via Natural or Artificial Opening Endoscopic (ICD-10-PCS; 2024-11-04)
DX: N39.0 Urinary tract infection, site not specified (principal); A04.9 Bacterial intestinal infection, unspecified; K57.30 Diverticulosis of large intestine without perforation or abscess without bleeding; T78.3XXA Angioneurotic edema, initial encounter; K64.8 Other hemorrhoids; Z87.19 Personal history of other diseases of the digestive system
CPT/HCPCS: 36415; 71045; 83605; 83735; 84100; 84484; 84703; 85025; 85730; 86403; 87040; 87070; 87086; A4606; A4663; A9537; G0378; J0696; J1171; J1720; J1885; J2270; J2405; J2470; J2919; J3490; J7040; Q9967

== ENCOUNTER 2024-11-17 22:13 | Emergency (ER) | payer OTHER ==
[~2024-11-17] VITALS: Ht 157.5 cm; Wt 62.1 kg
[~2024-11-17 22:13] MED LIST changes: -AMOX-430 PO; +CIPR500S2 PO; +METR500T PO
[2024-11-17 23:32] LABS: BASOPHILS % (AUTO) 0.6 % (0.0-2.0); EOSINOPHILS # (AUTO) 0.1 K/uL (0.0-0.7); EOSINOPHILS % (AUTO) 0.9 % (0.0-7.0); HEMATOCRIT 37.2 % (31.2-41.9); HEMOGLOBIN 12.5 g/dL (10.9-14.3); LYMPHOCYTES # (AUTO) 1.6 K/uL (0.8-4.8); LYMPHOCYTES % (AUTO) 21.9 % (20.5-51.5); MEAN CORPUSCULAR HGB CONC 34 g/dL (32.3-35.6); MEAN CORPUSCULAR VOLUME 89.2 fL (75.5-95.3); MONOCYTES # (AUTO) 0.9 K/uL (0.1-1.30); MONOCYTES % (AUTO) 11.6 % (0.0-11.0); NEUTROPHILS # (AUTO) 4.8 K/uL (1.8-8.9); PLATELET COUNT (AUTO) 307 K/uL (179-408); RED BLOOD CELL COUNT(AUTO) 4.17 MIL/uL (3.63-4.92); RED CELL DISTRIBUTION WIDTH 13.1 % (12.3-17.7); WHITE BLOOD COUNT (AUTO) 7.3 K/uL (3.8-11.8)
[2024-11-17 23:33] LABS: DIFFERENTIAL COMMENT 1
[2024-11-17] MEDS: IV NS 1000 ML 1,000 ML IV ONE (23:38)
[2024-11-17] MEDS ORDERED: MORPHINE SULFATE 2 MG/1 ML DISP.SYRIN ONE (23:41)
[2024-11-17] MEDS ORDERED: ONDANSETRON 4 MG/2 ML VIAL ONE (23:41)
[2024-11-17] MEDS: ONDANSETRON 4 MG/2 ML VIAL IV ONE (23:42)
[2024-11-17] MEDS: MORPHINE SULFATE 2 MG/1 ML DISP.SYRIN IV ONE (23:44)
[2024-11-18 00:04] LABS: CALCIUM 9.1 mg/dL (8.5-10.1); CREATININE 0.6 mg/dL (0.6-1.3); POTASSIUM 3.7 mmol/L (3.5-5.1)
[2024-11-18 00:10] LABS: ALBUMIN 3.3 g/dL (3.4-5.0); BILIRUBIN,TOTAL 0.5 mg/dL (0.2-1.0); TOTAL PROTEIN, SERUM 7.4 g/dL (6.4-8.2)
[2024-11-18 00:34] LABS: *BILIRUBIN,URIN NEGATIVE (NEGATIVE); *BLOOD, URINE 2+ (NEGATIVE); *CLARITY,URINE CLEAR (CLEAR); *COLOR,URINE YELLOW (YELLOW); *KETONES,URINE NEGATIVE (NEGATIVE); *PROTEIN,URINE NEGATIVE (NEGATIVE); *UROBILINOGEN,URINE 0.2 E.U./dl (NORMAL); LEUKOCYTE ESTERASE ,URINE NEGATIVE (NEGATIVE); NITRITE, URINE NEGATIVE (NEGATIVE); PH,URINE 5.5 (5.0-8.0); UGLUCOSE NEGATIVE (NEGATIVE)
[2024-11-18 00:36] LABS: *URINE HCG, QUAL NEGATIVE (NEGATIVE)
[2024-11-18 00:40] LABS: BACTERIA,URINE FEW /HPF (NONE SEEN); SQUAMOUS EPITHELIAL CELL,UR FEW /HPF (NONE SEEN); WBC,URINE 0-3 /HPF (0-3)
[2024-11-18 00:45] LABS: *AMPHETAMINE, URINE NEGATIVE (NEGATIVE); *BARBITURATE, URINE NEGATIVE (NEGATIVE); *BENZODIAZEPINE, URINE NEGATIVE (NEGATIVE); *CANNABINOID, URINE NEGATIVE (NEGATIVE); *COCCAINE, URINE NEGATIVE (NEGATIVE); *OPIATE, URINE POSITIVE (NEGATIVE); *PHENCYCLIDINE SCREEN,URINE NEGATIVE (NEGATIVE); FENTANYL, URINE NEGATIVE (NEGATIVE)
[2024-11-18] MEDS ORDERED: IOHEXOL 300MG/ML 100 ML INFUS..BTL ONE (01:03)
[2024-11-18] MEDS ORDERED: IV NORMAL SALINE 250 ML IV ONE (01:03)
[2024-11-18] MEDS ORDERED: SWABABLE VALVE TRANSFER SET EA MC ONE (01:03)
[2024-11-18] MEDS ORDERED: PANT20TA2 PO (06:24)
[2024-11-18] MEDS ORDERED: ONDA4TAB5 PO (06:24)
[2024-11-18] MEDS: IV NS 1000 ML 1,000 ML IV ONE (06:35)
[2024-11-18 07:10] VITALS: BP 98/70; O2SAT 99
== END 2024-11-18 07:12 | disposition home or self-care (01) ==
LOC: ER 22:13
DX: R10.84 Generalized abdominal pain (principal); Z86.16 Personal history of COVID-19
CPT/HCPCS: 36415; 83605; 83690; 84703; 85025; 87040; A4606; A4663; J2270; J2405; J7040; Q9967

== ENCOUNTER 2025-03-26 17:20 | Inpatient (IN) | payer OTHER ==
[~2025-03-26] VITALS: Ht 157.5 cm; Wt 68.0 kg
[~2025-03-26 17:20] MED LIST changes: -CIPR500S2 PO; -HYDR-4209 PO; -METR500T PO; -ONDA4TAB11 PO; +ONDA4TAB5 PO; +PANT20TA2 PO
[2025-03-26] MEDS: IV NORMAL SALINE 1000 ML BAG IV ONE (17:49)
[2025-03-26] MEDS ORDERED: HYDROMORPHONE 1 MG/1 ML DISP.SYRIN ONE ×2 (17:52→18:32)
[2025-03-26] MEDS ORDERED: ONDANSETRON 4 MG/2 ML VIAL ONE (17:52)
[2025-03-26] MEDS: ONDANSETRON 4 MG/2 ML VIAL IV ONE (17:53)
[2025-03-26] MEDS: HYDROMORPHONE 1 MG/1 ML DISP.SYRIN IV ONE ×2 (17:55→18:35)
[2025-03-26 18:00] LABS: *BILIRUBIN,URIN NEGATIVE (NEGATIVE); *BLOOD, URINE NEGATIVE (NEGATIVE); *CLARITY,URINE CLEAR (CLEAR); *COLOR,URINE YELLOW (YELLOW); *KETONES,URINE NEGATIVE (NEGATIVE); *PROTEIN,URINE NEGATIVE (NEGATIVE); *UROBILINOGEN,URINE 0.2 E.U./dl (NORMAL); LEUKOCYTE ESTERASE ,URINE 1+ (NEGATIVE); NITRITE, URINE NEGATIVE (NEGATIVE); UGLUCOSE NEGATIVE (NEGATIVE)
[2025-03-26 18:01] LABS: PLATELET COUNT (AUTO) 300 K/uL (179-408); RED BLOOD CELL COUNT(AUTO) 4.20 MIL/uL (3.63-4.92); RED CELL DISTRIBUTION WIDTH 13.0 % (12.3-17.7); WHITE BLOOD COUNT (AUTO) 9.1 K/uL (3.8-11.8)
[2025-03-26 18:12] LABS: SQUAMOUS EPITHELIAL CELL,UR FEW /HPF (NONE SEEN)
[2025-03-26 18:14] LABS: ASPARTATE AMINOTRANSFERASE 11 U/L (15-37); CREATININE 0.7 mg/dL (0.6-1.3); SODIUM SERUM 142 mmol/L (136-145); TOTAL PROTEIN, SERUM 7.3 g/dL (6.4-8.2); UREA NITROGEN, BLOOD 16 mg/dL (7-18)
[2025-03-26 18:22] LABS: PREGNANCY TEST SERUM QUAN < 1 miul/L (0-6)
[2025-03-26] MEDS ORDERED: IOHEXOL 300MG/ML 100 ML INFUS..BTL ONE (18:36)
[2025-03-26 19:00] VITALS: BP 102/59
[2025-03-26] MEDS ORDERED: PIPERACILLIN/TAZO 4.5 GM VIAL IV ONE (20:01)
[2025-03-26] MEDS: PIPERACILLIN SODIUM/TAZOBACTAM 4.5 G in IV DEXTROSE 5% 50 ML IV ONE (20:11)
[2025-03-26] MEDS ORDERED: METOCLOPRAMIDE HCL 10 MG/2 ML VIAL ONE (20:16)
[2025-03-26] MEDS: METOCLOPRAMIDE HCL 10 MG/2 ML VIAL IV ONE (20:19)
[2025-03-26] MEDS ORDERED: MORPHINE SULFATE 4 MG/1 ML DISP.SYRIN ONE (20:33)
[2025-03-26] MEDS: MORPHINE SULFATE 4 MG/1 ML DISP.SYRIN IV ONE (20:57)
[2025-03-26] MEDS ORDERED: ACETAMINOPHEN 650 MG SUPP.RECT RC PRN (21:30)
[2025-03-26] MEDS ORDERED: PIPERACILLIN SODIUM/TAZOBACTAM 3.375 G in IV DEXTROSE 5% 50 ML IV SCH (22:00)
[2025-03-26 22:01] VITALS: BP 100/55; TEMP 98.4; O2SAT 100
[2025-03-26] MEDS: PANTOPRAZOLE SODIUM 40 MG VIAL IV SCH (22:22)
[2025-03-26] MEDS: IV NS 1000 ML 1,000 ML IV PRN (22:22)
[2025-03-26] MEDS: ENOXAPARIN SODIUM 40 MG/0.4 ML DISP.SYRIN SQ SCH (22:23)
[2025-03-26] MEDS ORDERED: PIPERACILLIN/TAZOBACTAM/D5W 50 ML IV ONE (23:13)
[2025-03-27] MEDS: HYDROMORPHONE 1 MG/1 ML DISP.SYRIN IV PRN ×2 (02:15→17:10)
[2025-03-27] MEDS: PIPERACILLIN SODIUM/TAZOBACTAM 3.375 G in IV DEXTROSE 5% 50 ML IV ONE (04:24)
[2025-03-27] MEDS ORDERED: HYDROMORPHONE 1 MG/1 ML DISP.SYRIN IV PRN (06:00)
[2025-03-27 06:20] LABS: PLATELET COUNT (AUTO) 258 K/uL (179-408); RED BLOOD CELL COUNT(AUTO) 3.84 MIL/uL (3.63-4.92); RED CELL DISTRIBUTION WIDTH 12.6 % (12.3-17.7); WHITE BLOOD COUNT (AUTO) 9.4 K/uL (3.8-11.8)
[2025-03-27 06:36] VITALS: BP 97/58; TEMP 98.2; O2SAT 96
[2025-03-27 06:38] LABS: CREATININE 0.8 mg/dL (0.6-1.3); SODIUM SERUM 141.0 mmol/L (136-145); UREA NITROGEN, BLOOD 11.0 mg/dL (7-18)
[2025-03-27 10:50] VITALS: BP 100/62
[2025-03-27] MEDS: ONDANSETRON 4 MG/2 ML VIAL IV PRN (11:40)
[2025-03-27] MEDS: HYDROMORPHONE 1 MG/1 ML DISP.SYRIN IV ONE (11:44)
[2025-03-27] MEDS: PIPERACILLIN SODIUM/TAZOBACTAM 3.375 G in IV DEXTROSE 5% 100 ML IV SCH (11:53)
[2025-03-27 15:42] VITALS: BP 112/72; TEMP 98.2; O2SAT 98
[2025-03-27 17:11] VITALS: BP 104/61
[2025-03-27 19:35] VITALS: BP 106/63; TEMP 98.5; O2SAT 98
[2025-03-28 06:33] VITALS: BP 96/57; TEMP 98; O2SAT 95
[2025-03-28 06:40] LABS: PLATELET COUNT (AUTO) 264 K/uL (179-408); RED BLOOD CELL COUNT(AUTO) 3.86 MIL/uL (3.63-4.92); RED CELL DISTRIBUTION WIDTH 12.2 % (12.3-17.7); WHITE BLOOD COUNT (AUTO) 5.6 K/uL (3.8-11.8)
[2025-03-28 07:00] LABS: CREATININE 0.6 mg/dL (0.6-1.3); SODIUM SERUM 139.0 mmol/L (136-145); UREA NITROGEN, BLOOD 7.0 mg/dL (7-18)
[2025-03-28 08:50] VITALS: BP 107/64
[2025-03-28] MEDS ORDERED: HYDROCODONE/APAP 10-325 MG TABLET PO PRN (10:30)
[2025-03-28] MEDS: PREGABALIN 25 MG CAPSULE PO SCH (10:39)
[2025-03-28] MEDS: DICYCLOMINE HCL 10 MG CAPSULE PO SCH (11:21)
[2025-03-28 11:34] VITALS: BP 106/58; TEMP 98.2; O2SAT 98
[2025-03-28] MEDS: MORPHINE SULFATE 4 MG/1 ML DISP.SYRIN IV PRN (13:48)
[2025-03-28 15:44] VITALS: BP 113/69; TEMP 98.1; O2SAT 97
[2025-03-28 19:00] VITALS: BP 113/75; TEMP 98.3; O2SAT 97
[2025-03-29 06:40] VITALS: BP 102/64; TEMP 97.7; O2SAT 97
[2025-03-29 06:58] LABS: PLATELET COUNT (AUTO) 278 K/uL (179-408); RED BLOOD CELL COUNT(AUTO) 3.87 MIL/uL (3.63-4.92); RED CELL DISTRIBUTION WIDTH 12.1 % (12.3-17.7); WHITE BLOOD COUNT (AUTO) 5.3 K/uL (3.8-11.8)
[2025-03-29 07:19] LABS: CREATININE 0.9 mg/dL (0.6-1.3); SODIUM SERUM 141.0 mmol/L (136-145); UREA NITROGEN, BLOOD 8.0 mg/dL (7-18)
[2025-03-29 11:46] VITALS: BP 92/58; TEMP 97.6; O2SAT 97
[2025-03-29] MEDS ORDERED: ONDA4TAB11 PO (12:33)
[2025-03-29] MEDS ORDERED: HYDR-3980 PO (12:33)
[2025-03-29] MEDS ORDERED: PREG50CA PO (12:33)
[2025-03-29] MEDS ORDERED: AMOX-430 PO (12:33)
[2025-03-29] MEDS ORDERED: DICY10CA13 PO (12:33)
== END 2025-03-29 16:08 | disposition home or self-care (01) | DRG 244 ==
LOC: ER 17:22 → MEDSURG3 21:35
PROVIDERS: ADMIT Nurse Practitioner Acute Care; ATTEND Nurse Practitioner Acute Care
DX: K57.32 Diverticulitis of large intestine without perforation or abscess without bleeding (principal); D68.59 Other primary thrombophilia; E44.1 Mild protein-calorie malnutrition; E88.09 Other disorders of plasma-protein metabolism, not elsewhere classified; N39.0 Urinary tract infection, site not specified; K44.9 Diaphragmatic hernia without obstruction or gangrene; E66.9 Obesity, unspecified; Z68.27 Body mass index [BMI] 27.0-27.9, adult; Z87.19 Personal history of other diseases of the digestive system; Z87.440 Personal history of urinary (tract) infections
CPT/HCPCS: 36415; 74018; 83605; 83690; 83735; 84100; 85025; 87086; A4606; A4663; G0378; J1171; J1650; J2270; J2405; J2470; J2543; J2765; J7040; Q9967